=== PATIENT | female | born 1970 | race American Indian/Alaskan Native ===

== ENCOUNTER → 2018-08-29 | Outpatient (CLI) | payer BC, OTHER ==
--- NOTE | 2018-08-30 15:47 | 24HR ---
[address] [place] [address] 24 HR ELECTROCARDIOGRAM REPORT Name: SHERMAN OLIVEIRAPIERCE Room #: REG CL [facility]#: [id number] ������������� Admission: 08/29/18 ������������� Attend Phys: Sergio Alicea MD Discharge: ��� ������������� ��� Date of : 70 Date of Service: 08/29/18 1156 �� Report #: [id number] �������� ��������������������������������������������[id number] THIS REPORT FOR: //name// [facility] Test Date: 2018-08-29 Test Time: 11:56:00 Pat Name: PIERCE OLIVEIRA Department: Room: Gender: Business Systems Consultant: : 1970 Requested By: Sergio Alicea Order Number: [id number] Reading MD: Alfa Victoria Interpretive Statements 1. The study duration was 24 hours and the technical quality was acceptable. Predominant rhythm sinus rhythm at an average heart rate of 83 bpm, range 53-150 bpm. Longest RR interval 1.3 seconds. 2. No episodes of atrial fibrillation or atrial flutter. No heart block. Rare, isolated atrial premature complexes. No episodes of paroxysmal supraventricular tachycardia 3. No ventricular ectopy. No ventricular tachycardia. 4. Symptoms of dizziness corresponded to sinus rhythm Electronically Signed On 08-30-2018 15:47:37 CDT by Alfa Victoria [email or web address] ��������������������������������������������� <ELECTRONICALLY SIGNED> ���������������������������������������� By: Alfa Victoria MD, [facility] ��������������������������������������������� 08/30/18 1547 1156 1156 Alfa Victoria MD, [facility] /EPI
== END ==
LOC: CV 06:22
DX: R00.2 Palpitations (principal); R42 Dizziness and giddiness